=== PATIENT | female | born 1990 | race Caucasian/White ===

== ENCOUNTER 2017-08-26 17:39 | Emergency (ER) | payer MEDICAID ==
[~2017-08-26] VITALS: Ht 160 cm; Wt 54.4 kg
[2017-08-26 18:02] VITALS: BP 107/66
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
[2017-08-26] MEDS ORDERED: Ketorolac 30mg Inj IM ONE (19:30)
[2017-08-26] MEDS ORDERED: TYLENOL EXTRA500 MG ORAL (19:52)
[2017-08-26] MEDS ORDERED: ROBAXIN500 MG PO (19:52)
[2017-08-26] MEDS ORDERED: IBUPROFEN600 MG ORAL (20:08)
[2017-08-26 20:25] VITALS: BP 107/66
--- NOTE | 2017-08-27 08:42 | Diagnostic Imaging Report ---
Indication: Pain, status post fall Technique: 3 views of the left knee Comparison: None Findings: Bony alignment is normal. No suprapatellar effusion. No acute fractures. No dislocations. The joint spaces are preserved Impression: Negative
== END 2017-08-26 20:25 | disposition home or self-care (01) ==
LOC: EDBD 17:39 → EMR 18:39
DX: S00.83XA Contusion of other part of head, initial encounter (principal); V43.62XA Car passenger injured in collision with other type car in traffic accident, initial encounter; Y92.410 Unspecified street and highway as the place of occurrence of the external cause; M25.562 Pain in left knee
CPT/HCPCS: 73562; 99284; J1885